=== PATIENT | male | born 1950 | race Caucasian/White ===

== ENCOUNTER 2019-04-09 20:12 | Inpatient (IN) | payer OTHER | END 2019-04-12 17:03 | disposition home or self-care (01) | LOC: ED 20:12 → DU 04-10 00:02 → ED 20:12 → DU 04-10 00:02 → ED 20:12 → DU 04-10 00:02 → ED 20:12 → DU 04-10 00:02 → MU 04-10 00:02 → DU 04-12 17:03 → ED 20:12 → MU 04-10 00:02 → ED 20:12 → MU 04-10 00:55 | PROC: 0FT44ZZ Resection of Gallbladder, Percutaneous Endoscopic Approach (ICD-10-PCS; principal; 2019-04-11 07:00) | DX: K81.0 Acute cholecystitis (principal); K82.1 Hydrops of gallbladder ==

== ENCOUNTER 2019-04-23 13:09 | Emergency (ER) | payer SELFPAY ==
[~2019-04-23] VITALS: Ht 162.6 cm; Wt 72.6 kg
[~2019-04-23 13:09] MED LIST: LEVAQUIN750 MG PO
[2019-04-23 13:15] VITALS: Ht 162.6 cm; Wt 72.6 kg
[2019-04-23 15:56] VITALS: BP 148/90
== END 2019-04-23 15:56 | disposition home or self-care (01) ==
LOC: ED 13:09
DX: Z48.02 Encounter for removal of sutures (principal); I10 Essential (primary) hypertension; Z90.49 Acquired absence of other specified parts of digestive tract